=== PATIENT | male | born 1960 | race African-American/Black ===

== ENCOUNTER 2017-12-27 12:19 | Emergency (ER) | payer OTHER ==
[~2017-12-27] VITALS: Ht 188 cm; Wt 99.8 kg
[2017-12-27 12:39] VITALS: Ht 188 cm; Wt 99.8 kg
[2017-12-27 13:20] LABS: BASOPHIL % 0.2 % (0-2); PLATELET COUNT 183 x10^3mcL (130-400); RED CELL DISTRIBUTION WIDTH 13.1 % (11.5-14.5)
[2017-12-27 13:22] LABS: CALCIUM 8.2 mg/dL (8.5-10.1); CARBON DIOXIDE 25.5 mmol/L (21-32); CHLORIDE SERUM 105 mmol/L (98-107); CREATININE SERUM 1.2 mg/dL (0.7-1.3); GFR1 > 60 mL/min; GLUCOSE SERUM 112 mg/dL (74-106); POTASSIUM SERUM 3.7 mmol/L (3.5-5.1); SODIUM SERUM 139 mmol/L (136-145)
[2017-12-27 13:27] LABS: ALKALINE PHOSPHATASE 70 U/L (46-116); ALT/SGPT 101 U/L (16-63); AST/SGOT 64 U/L (15-37); BILIRUBIN TOTAL 0.99 mg/dL (0.20-1.00); TOTAL PROTEIN, SERUM 6.7 g/dL (6.4-8.2)
[2017-12-27 13:29] LABS: ALBUMIN 3.3 g/dL (3.4-5.0)
[2017-12-27 14:25] VITALS: BP 129/82
== END 2017-12-27 14:25 | disposition home or self-care (01) ==
LOC: ED 12:19
PROVIDERS: Emergency Medicine
DX: S96.912A Strain of unspecified muscle and tendon at ankle and foot level, left foot, initial encounter (principal); S60.512A Abrasion of left hand, initial encounter; G62.9 Polyneuropathy, unspecified; K21.9 Gastro-esophageal reflux disease without esophagitis; X58.XXXA Exposure to other specified factors, initial encounter; Y93.89 Activity, other specified; Y92.89 Other specified places as the place of occurrence of the external cause; Y99.8 Other external cause status
CPT/HCPCS: 36415; 83880; 90715

== ENCOUNTER 2018-03-06 21:22 | Emergency (ER) | payer OTHER ==
[~2018-03-06] VITALS: Ht 188 cm; Wt 103.0 kg
[2018-03-06 21:30] VITALS: Ht 188 cm; Wt 103.0 kg
[2018-03-06 22:20] LABS: BASOPHIL % 0.2 % (0-2); PLATELET COUNT 177 x10^3mcL (130-400); RED CELL DISTRIBUTION WIDTH 13.4 % (11.5-14.5)
[2018-03-06 22:24] LABS: CALCIUM 8.8 mg/dL (8.5-10.1); CARBON DIOXIDE 27.1 mmol/L (21-32); CHLORIDE SERUM 105 mmol/L (98-107); CREATININE SERUM 1.2 mg/dL (0.7-1.3); GFR1 > 60 mL/min; GLUCOSE SERUM 108 mg/dL (74-106); POTASSIUM SERUM 3.6 mmol/L (3.5-5.1); SODIUM SERUM 139 mmol/L (136-145)
[2018-03-07 01:03] VITALS: BP 165/70
== END 2018-03-07 01:03 | disposition home or self-care (01) ==
LOC: ED 21:22
PROVIDERS: Emergency Medicine
DX: R20.2 Paresthesia of skin (principal); G62.9 Polyneuropathy, unspecified; R07.89 Other chest pain; M79.672 Pain in left foot; M79.671 Pain in right foot
CPT/HCPCS: 36415; Q0092

== ENCOUNTER 2018-07-25 23:48 | Emergency (ER) | payer OTHER ==
[~2018-07-25] VITALS: Ht 188 cm; Wt 99.8 kg
[2018-07-25 23:54] VITALS: BP 132/83; Ht 188 cm; Wt 99.8 kg
== END 2018-07-26 00:41 | disposition home or self-care (01) ==
LOC: ED 23:48
DX: S01.111A Laceration without foreign body of right eyelid and periocular area, initial encounter (principal); K21.9 Gastro-esophageal reflux disease without esophagitis; F31.9 Bipolar disorder, unspecified; F42.9 Obsessive-compulsive disorder, unspecified; N02.8 Recurrent and persistent hematuria with other morphologic changes; W01.198A Fall on same level from slipping, tripping and stumbling with subsequent striking against other object, initial encounter; Y93.89 Activity, other specified; Y92.89 Other specified places as the place of occurrence of the external cause; Y99.8 Other external cause status; I10 Essential (primary) hypertension
CPT/HCPCS: J2001

== ENCOUNTER 2019-01-30 08:21 | Emergency (ER) | payer OTHER ==
[~2019-01-30] VITALS: Ht 188 cm; Wt 88.9 kg
[2019-01-30 08:32] VITALS: Ht 188 cm; Wt 88.9 kg
[2019-01-30 09:37] LABS: CALCIUM 8.8 mg/dL (8.5-10.1); CARBON DIOXIDE 29.5 mmol/L (21-32); CHLORIDE SERUM 102 mmol/L (98-107); GFR1 > 60 mL/min; GLUCOSE SERUM 81 mg/dL (74-106); POTASSIUM SERUM 3.3 mmol/L (3.5-5.1); SODIUM SERUM 142 mmol/L (136-145)
[2019-01-30 09:41] LABS: ALBUMIN 3.9 g/dL (3.4-5.0); ALKALINE PHOSPHATASE 96 U/L (46-116); ALT/SGPT 64 U/L (16-63); AST/SGOT 70 U/L (15-37); BILIRUBIN TOTAL 0.7 mg/dL (0.20-1.00); TOTAL PROTEIN, SERUM 7.5 g/dL (6.4-8.2)
[2019-01-30 09:50] LABS: BASOPHIL % 0.4 % (0-2); PLATELET COUNT 161 x10^3mcL (130-400); RED CELL DISTRIBUTION WIDTH 12.8 % (11.5-14.5)
[2019-01-30 10:48] VITALS: BP 132/69
== END 2019-01-30 10:48 | disposition home or self-care (01) ==
LOC: ED 08:21
PROVIDERS: Emergency Medicine
DX: R11.2 Nausea with vomiting, unspecified (principal); R09.81 Nasal congestion; R53.1 Weakness; F17.210 Nicotine dependence, cigarettes, uncomplicated; K21.9 Gastro-esophageal reflux disease without esophagitis; F32.9 Major depressive disorder, single episode, unspecified; F42.9 Obsessive-compulsive disorder, unspecified; R05 Cough
CPT/HCPCS: 99406; J7030; Q0092

== ENCOUNTER 2019-03-22 12:24 | Emergency (ER) | payer OTHER ==
[~2019-03-22] VITALS: Ht 188 cm; Wt 83.9 kg
[2019-03-22 12:30] VITALS: Ht 188 cm; Wt 83.9 kg
[2019-03-22 13:27] LABS: CARBON DIOXIDE 29.2 mmol/L (21-32); CHLORIDE SERUM 104 mmol/L (98-107); CREATININE SERUM 1.1 mg/dL (0.7-1.3); GFR1 > 60 mL/min; GLUCOSE SERUM 101 mg/dL (74-106); POTASSIUM SERUM 3.4 mmol/L (3.5-5.1); SODIUM SERUM 141 mmol/L (136-145)
[2019-03-22 13:38] LABS: ALBUMIN 3.6 g/dL (3.4-5.0); ALKALINE PHOSPHATASE 59 U/L (46-116); ALT/SGPT 99 U/L (16-63); AST/SGOT 143 U/L (15-37); BILIRUBIN TOTAL 0.7 mg/dL (0.20-1.00); CHOLESTEROL 190 mg/dL (<200); TOTAL PROTEIN, SERUM 6.6 g/dL (6.4-8.2)
[2019-03-22 14:11] LABS: BASOPHIL % 0.5 % (0-2); PLATELET COUNT 156 x10^3mcL (130-400); RED CELL DISTRIBUTION WIDTH 13.2 % (11.5-14.5)
[2019-03-22 16:14] VITALS: BP 143/86
== END 2019-03-22 16:14 | disposition home or self-care (01) ==
LOC: ED 12:24
PROVIDERS: Specialist
DX: R55 Syncope and collapse (principal); S09.8XXA Other specified injuries of head, initial encounter; F10.239 Alcohol dependence with withdrawal, unspecified; R19.7 Diarrhea, unspecified; I10 Essential (primary) hypertension; S29.012A Strain of muscle and tendon of back wall of thorax, initial encounter; K21.9 Gastro-esophageal reflux disease without esophagitis; F42.9 Obsessive-compulsive disorder, unspecified; X58.XXXA Exposure to other specified factors, initial encounter; Y93.89 Activity, other specified; Y92.89 Other specified places as the place of occurrence of the external cause; Y99.8 Other external cause status; Y90.0 Blood alcohol level of less than 20 mg/100 ml
CPT/HCPCS: 72072; 99406; G0480; J7030; Q0092

== ENCOUNTER 2019-04-10 22:17 | Inpatient (IN) | payer OTHER ==
[~2019-04-10] VITALS: Ht 188 cm; Wt 78.9 kg
[2019-04-10 22:30] VITALS: Ht 188 cm; Wt 78.9 kg
--- NOTE | 2019-04-10 22:49 | NUR ---
PT SITTING UP IN BED, AAOX4 WITH C/O 9/10 PAIN TO BACK OF HEAD S/P SYNCOPAL EPISODE 2 HOURS AGO. PT STATES HE HIT HIS HEAD ON A POLE WHILE AT THIS STORE AFTER HAVING A DIZZY SPELL. +LOC. OPEN LAC TO BACK OF HEAD WITH NO ACTIVE BLEEDING AT THIS TIME. PT STATES MULTIPLE EPISODES OF SYNCOPY FOR THE LAST 6 WEEKS AND WAS HERE 2 WEEKS AGO FOR SAME COMPLAINT. AT BEDSIDE. PT ON MONITOR.
--- NOTE | 2019-04-10 23:04 | NUR ---
PT OFF OF UNIT TO RADIOLOGY VIA [facility].
--- NOTE | 2019-04-10 23:30 | NUR ---
PT ASSISTED TO RESTROOM VIA WHEELCHAIR WITH AND EMT
[2019-04-10 23:32] LABS: BASOPHIL % 0.4 % (0-2); PLATELET COUNT 173 x10^3mcL (130-400); RED CELL DISTRIBUTION WIDTH 13.6 % (11.5-14.5)
[2019-04-10 23:56] LABS: ALBUMIN 3.4 g/dL (3.4-5.0); ALKALINE PHOSPHATASE 60 U/L (46-116); ALT/SGPT 55 U/L (16-63); AST/SGOT 41 U/L (15-37); CALCIUM 9.2 mg/dL (8.5-10.1); CARBON DIOXIDE 26.5 mmol/L (21-32); CHLORIDE SERUM 103 mmol/L (98-107); FREE T4 1.05 ng/dL (0.76-1.46); GFR1 > 60 mL/min; GLUCOSE SERUM 98 mg/dL (74-106); SODIUM SERUM 143 mmol/L (136-145); TOTAL PROTEIN, SERUM 6.4 g/dL (6.4-8.2)
[2019-04-11] VITALS (7 sets, daily range): BP systolic 134–150; BP diastolic 81–95
--- NOTE | 2019-04-11 00:15 | NUR ---
PT RESTING IN BED WITH AT BEDSIDE. NO SIGNS OF DISTRESS AT THIS TIME.
[2019-04-11] MEDS ORDERED: GOOD SENSE OMEP20 MG PO (00:34)
[2019-04-11] MEDS ORDERED: PAROXETINE HCL40 M1 PO (00:34)
[2019-04-11] MEDS ORDERED: TRAZODONE HCL300 MG PO (00:35)
[2019-04-11] MEDS ORDERED: PENTOXIFYL XR400 M1 PO (00:35)
[2019-04-11] MEDS ORDERED: DEPAKOTE ER250 M1 PO (00:36)
[2019-04-11] MEDS ORDERED: GOOD SENSE ASP325 MG PO (00:36)
[2019-04-11] MEDS ORDERED: LATUDA40 M1 PO (00:36)
[2019-04-11 00:37] LABS: PHOSPHOROUS 2.4 mg/dL (2.5-4.9)
[2019-04-11 00:42] LABS: CHOLESTEROL/HDL RATIO 1.6
--- NOTE | 2019-04-11 00:48 | NUR ---
REPORT GIVEN TO ARACELI HERNANDEZ.
[2019-04-11 01:07] LABS: AMPHETAMINE QUAL UR NONE DETECTED (See below)
--- NOTE | 2019-04-11 01:14 | NUR ---
EMT AT BEDSIDE FOR WOUND CARE.
[2019-04-11 01:21] LABS: UA SPECIFIC GRAVITY 1.025 (1.005-1.035); microscopic required? YES; urine erythrocyte NEGATIVE (NEGATIVE)
--- NOTE | 2019-04-11 02:10 | NUR ---
REC'D PT FROM ED VIA [facility] ACCOMPANIED BY NURSE, EMT, AND PT'S . PT AMBULATED FROM [facility] TO BED BY SELF. ADM FOR SYNCOPAL EPISODE. REPORTS THIS IS THE 6TH TIME THIS MONTH. STATES HE WAS ABOUT TO GO TO THE [facility]ORE, FAINTED, AND HIT THE BACK OF HIS HEAD ON A POLE. LACERATION TO BACK OF THE HEAD WITH X4 CHAGO. SMALL AMT OF SANGUINEOUS DRAINAGE NOTED. PICTURE OBTAINED. REPORTS MILD DIZZINESS WITH AMBULATION BUT DENIES AT REST. AAOX4, SPEECH CLEAR, FOLLOWS COMMANDS. DENIES RESP DISTRESS OR SOB. BREATHING EVEN/UNLABORED ON RA. TELE 10, NSR. DENIES CP OR PALPITATIONS. NO EDEMA NOTED. C/O NUMBING TO TOES AND FLORES SHOULDERS. AMBULATES BY SELF. ABD SOFT/ROUND. C/O TENDERNESS WITH PALPATION. REPORTS POOR APPETITE AND VOMITING ALMOST EVERY DAY. STATES HE HAS "MUCUS IN HIS STOMACH" AND HAS LOST 50 LBS IN THE PAST 4 MONTHS. LAST BM YESTERDAY WATERY/BROWN. C/O THROBBING NECK PAIN /10 AND SOME PAIN TO THE CHAGO ON THE BACK OF HIS HEAD BUT "SORT OF NUMB" D/T LIDOCAINE GIVEN IN ED. WILL MEDICATE WITH TYLENOL PER ORDER. IV TO LAC FLUSHED AND PATENT, SITE WNL. ORIENTED TO DEVICES AND SURROUNDINGS. CALL LIGHT WITHIN REACH, BED AT LOWEST POSITION. WILL CONTINUE TO MONTIOR.
--- NOTE | 2019-04-11 02:16 | NUR ---
PT TRANSFERRED TO TELE FLOOR ACCOMPANIED BY NURSE AND EMT. NO S/S OF DISTRESS. RESP E/U. PT CONNECTED TO MONITOR DURING TRANSFER. NURSE AT BEDSIDE TO ASSUME CARE. IV SITE PATENT NO S/S OF INFILTRATION.
--- NOTE | 2019-04-11 02:26 | NUR ---
DR. AVINA AT BEDSIDE. MADE AWARE OF K 3.O.
--- NOTE | 2019-04-11 03:54 | NUR ---
PT RESTING IN BED WITH EYES CLOSED. NO SIGNS OF DISTRESS NOTED. BREATHING EVEN/UNLABORED ON RA. AWAKENS WITH VERBAL STIMULI. DUE MEDS GIVEN. SWALLOWED KLOR CON WITHOUT DIFFICULTY. INFORMED PT HOME MED LATUDA REQUIRED SINCE WE DO NOT CARRY IT IN HOUSE. PT VERBALIZED UNDERSTANDING. CALL LIGHT WITHIN REACH, BED AT LOWEST POSITION. WILL CONTINUE TO MONITOR.
--- NOTE | 2019-04-11 05:35 | NUR ---
PT RESTING IN BED WITH EYES CLOSED. DUE MEDS GIVEN. DENIES DIZZINESS AT THIS TIME. CHAGO TO BACK OF THE HEAD INTACT. CALL LIGHT WITHIN REACH, BED AT LOWEST POSITION. WILL ENDORSE TO DAY NURSE.
[2019-04-11 06:21] LABS: CALCIUM 8.5 mg/dL (8.5-10.1); CARBON DIOXIDE 28.2 mmol/L (21-32); CHLORIDE SERUM 107 mmol/L (98-107); CREATININE SERUM 1.1 mg/dL (0.7-1.3); GFR1 > 60 mL/min; GLUCOSE SERUM 81 mg/dL (74-106); PHOSPHOROUS 3.7 mg/dL (2.5-4.9); POTASSIUM SERUM 3.4 mmol/L (3.5-5.1); SODIUM SERUM 144 mmol/L (136-145)
[2019-04-11 06:25] LABS: BASOPHIL % 0.3 % (0-2); PLATELET COUNT 143 x10^3mcL (130-400); RED CELL DISTRIBUTION WIDTH 14.1 % (11.5-14.5)
--- NOTE | 2019-04-11 07:10 | NUR ---
RECEIVED BEDSIDE REPORT FROM RIVET DRIVER NURSE AT THIS TIME. PATIENT RESTING COMFORTABLY IN BED. NO APPARENT DISTRESS OR DISCOMFORT NOTED. BREATHING EVEN AND UNLABORED. NO RESPIRATORY DISTRESS OR DISCOMFORT. PATIENT DENIES CHEST PAIN/PRESSURE AT THIS TIME. IV PATENT AND INTACT. CHAGO TO BACK OF HEAD INTACT. NO REDNESS NOTED. ALL QUESTIONS AND CONCERNS ADDRESSED. ALL NEEDS ATTENDED TO. WILL CONTINUE TO MONITOR
--- NOTE | 2019-04-11 10:59 | NUR ---
ALL MORNING MEDICATIONS ADMINISTERED. PATIENT TOLERATED WELL. NO APPARENT DISTRESS OR DISCOMFORT NOTED. NO ADVERSE EFFECTS NOTED. ALL NEEDS ATTENDED TO. WILL CONTINUE TO MONITOR
--- NOTE | 2019-04-11 12:48 | NUR ---
PAGED DR DIMAS AT THIS TIME REGARDING PATIENT POTASSIUM OF 3.4. AWAITING CALL BACK. WILL CONTINUE TO MONITOR
--- NOTE | 2019-04-11 13:24 | NUR ---
PATIENT SITTING ON SIDE OF BED EATING LUNCH AT THIS TIME. TOLERATING DIET FAIRLY. C/O POOR APPETITE. ALL NEEDS ATTENDED TO. WILL CONTINUE TO MONITOR
--- NOTE | 2019-04-11 16:02 | NUR ---
PATIENT C/O HEADACHE AT THIS TIME. PATIENT MEDICATED WITH TYLENOL PRN. PATIENT TOLERATED WELL. NO ADVERSE EFFECT NOTED. ALL NEEDS ATTENDED TO. WILL CONTINUE TO MONITOR
--- NOTE | 2019-04-11 17:59 | NUR ---
PATIENT SITTING UP ON SIDE OF BED EATING DINNER AT THIS TIME. PATIENT TOLERATING DIET WELL. NO APPARENT DISTRESS OR DISCOMFORT NOTED. ALL NEEDS ATTENDED TO. WILL CONTINUE TO MONITOR
--- NOTE | 2019-04-11 18:40 | NUR ---
PATIENT RESTING COMFORTABLY IN BED AT THIS TIME. NO APPARENT DISTRESS OR DISCOMFORT NOTED. IV PATENT AND INTACT. ALL QUESTIONS AND CONCERNS ADDRESSED. ALL NEEDS ATTENDED TO. SAFETY PRECAUTIONS MAINTAINED. WILL ENDORSE ALL CARE TO SYSTEMS QA ANALYST NURSE
--- NOTE | 2019-04-11 19:35 | NUR ---
RECIEVED PT RESTING IN BED COMFORTABLY WITH FAMILY MEMBER AT BEDSIDE, NO ACUTE DISTRESS NOTED, ASSESSMENT PERFORMED AT THIS TIME, PT A/O X4 NO COMPLAINTS OF DIZZINESS AT THIS TIME, PT REPORTS MILD HUDDLESTON, PT STATES HUDDLESTON IS WITHIN PAIN TOLERANCE AND WELL CONTROLED, TELE MONITOR 10, NSR, SAFETY PRECAUTIONS IN PLACE, WILL CONTINUE TO MONITOR
--- NOTE | 2019-04-11 21:37 | NUR ---
PT COMNPLAINING OF HUDDLESTON 01/24 REQUESTING TYLENOL. ADMINISTERED PER ORDER WILL CONTINUE TO MONITOR
--- NOTE | 2019-04-11 23:20 | NUR ---
PT SLEEPING IN BED WITH NO ACUTE DISTRESS AT THIS TIME, RESPIRATIONS EVEN AND UNLABORED, SAFETY PRECAUTIONS IN PLACE, WILL CONTINUE TO MONITOR
--- NOTE | 2019-04-12 01:24 | NUR ---
PT SLEEPING IN BED WITH NO ACUTE DISTRESS AT THIS TIME, RESPIRATIONS EVEN AND UNLABORED, SAFETY PRECAUTIONS IN PLACE, WILL CONTINUE TO MONITOR
--- NOTE | 2019-04-12 03:36 | NUR ---
PT SLEEPING IN BED WITH NO ACUTE DISTRESS NOTED AT THIS TIME, RESPIRATIONS EVEN AND UN LABORED, SIEZURE PRECAUTIONS IN PLACE, SAFETY PRECAUTIONS IN PLACE, WILL CONTINUE TO MONITOR
--- NOTE | 2019-04-12 05:17 | NUR ---
PT SLEPT THROUGH OUT THE NIGHT AND HAD ONLY ONE EPISODE OF PAIN WHICH WAS A HUDDLESTON AND WAS RESOLVED WITH PRN ADMINISTRATION OF TYLENOL, SIEJULIANRE PRECAUTIONS WERE MAINTAINED THROUGH SHIFT, SAFETY PRECAUTIONS MAINTAINED THROUGH SHIFT, WILL CONTINUE TO MONITOR AND ENDORSE CARE TO ONCOMING RN
[2019-04-12 05:19] VITALS: BP 142/87
[2019-04-12 06:09] LABS: BASOPHIL % 0.3 % (0-2); PLATELET COUNT 140 x10^3mcL (130-400); RED CELL DISTRIBUTION WIDTH 13.9 % (11.5-14.5)
[2019-04-12 06:23] LABS: CALCIUM 8.2 mg/dL (8.5-10.1); CARBON DIOXIDE 26.7 mmol/L (21-32); CHLORIDE SERUM 109 mmol/L (98-107); CREATININE SERUM 0.9 mg/dL (0.7-1.3); GFR1 > 60 mL/min; GLUCOSE SERUM 94 mg/dL (74-106); MAGNESIUM 2.1 mg/dL (1.8-2.4); PHOSPHOROUS 2.2 mg/dL (2.5-4.9); POTASSIUM SERUM 3.5 mmol/L (3.5-5.1); SODIUM SERUM 145 mmol/L (136-145)
--- NOTE | 2019-04-12 07:30 | NUR ---
PATIENT SLEEPING BED, AROUSABLE. PATEINT DENIES PAIN. PATIENT C/O HEADACHE. SEIZURE PRECAUTION IN PLACE. LACERATION TO SCALP CDI, NO DRAINAGE NOTED. TELE MONITOR IN PLACE, DENIES CHEST PAIN. NUMBNESS TO TOES NOTED, HX OF BUERGERS DISEASE. DENIES SOB. INCREASE APPETITE NOTED. PATIENT C/O FREQUENT URINATION. MILD GENERALIZED WEAKNESS NOTED. NS IV INFUSING TO LAC AT 50ML/HR, IV SITE CDI & PATENT, NO S/S OF INFILTRATION. CALL LIGHT WITHIN REACH, BED IN LOW POSITION FOR SAFETY PRECAUTION. WILL CONTINUE TO MONITOR FOR CHANGES.
--- NOTE | 2019-04-12 08:58 | NUR ---
WOUND CARE EVALUATION NOTES: REASON FOR EVALUATION: OCCIPITAL SCALP LACERATION SKIN ASSESSMENT DONE ON THIS 59 Y/O MALE PATIENT FROM HOME TO [facility], WITH INITIAL DIAGNOSIS OF SYNCOPY. PAST MEDICAL HISTORY INCLUDE BUERGER'S DISEASE, DEPRESSION,BIPOLAR AND SCHIZOPHRENIA. ALL ABOVE INFORMATION WAS OBTAINED FROM THE ADMISSION H&P. PT SKIN IS WARM AND DRY, MULTIPLE TATTOO TO UPPER BODY, OCCIPITAL SCALP LACERATION WITH [address] DRY AND CLEAN ,ROBERT-WOUND SKIN CLEAN AND SWELLING, SKIN INTACT. RECOMMENDATIONS: KEEP AREA, DRY AND CLEAN, FOLLPW UP WITH PRIMARY /OUT PATIENT 7-10 DAYS AFTER DISCHARGE FOR STAPLE REMOVAL.PT. VERVALIZING UNDERSYANDING. PLAN OF CARE EXPLAIN AND ALL QUESTIONS ANSWERED. POC DISCUSSED WITH PRIMARY RN.
--- NOTE | 2019-04-12 09:25 | NUR ---
PATIENT C/O HEADACHE 05/26, MEDICATED PATIENT WITH TYLENOL PER PROTOCOL. TURNED OFF PATIENT LIGHTS TO REDUCE STIMULI. CALL LIGHT WITHIN REACH, BED IN LOW POSITION FOR SAFETY PRECAUTION. WILL CONTINUE TO MONITOR FOR CHANGES.
[2019-04-12 09:36] VITALS: BP 125/81
--- NOTE | 2019-04-12 13:00 | NUR ---
PATIENT IS SITTING UP IN BED, NO ACUTE DISTRESS NOTED. PATIENT DENIES PAIN. PATIENT IS EATING WELL, AND STATES HE HAS A BETTER APPETITE TODAY. CALL LIGHT WITHIN REACH, BED IN LOW POSITION FOR SAFETY PRECAUTION. WILL CONTINUE TO MONITOR FOR CHANGES.
[2019-04-12 13:26] VITALS: BP 141/89
[2019-04-12 16:01] VITALS: BP 141/89
[2019-04-12 16:59] VITALS: BP 136/92
--- NOTE | 2019-04-12 17:45 | NUR ---
PATIENT WAS DISCHARGE HOME, FAMILY AT BEDSIDE. PATIENT RECEIVED COPY OF DISCHARGE INSTRUCTIONS, PATIENT UNDERSTANDS AND AGREES WITH PLAN OF CARE AND D/C INSTRUCTIONS, INCLUDING MEDICATIONS & FOLLOW UP WITH PCP. ALL QUESTIONS AND CONCERNS ADDRESSED. PATIENT TOOK HOME ALL PERSONAL BELONGSING. TELE MONITOR & ARMBAND REMOVED. IV TO LAC REMOVED BY RN STUDENT. PATIENT TAKEN DOWN VIA WHEELCHAIR BY SHELLFISH SHUCKER.
== END 2019-04-12 17:44 | disposition home or self-care (01) | DRG 48 ==
LOC: ED 22:17 → DU 04-11 00:13
PROVIDERS: Emergency Medicine; ADMIT Internal Medicine
DX: G90.8 Other disorders of autonomic nervous system (principal); N17.0 Acute kidney failure with tubular necrosis; E44.1 Mild protein-calorie malnutrition; E83.39 Other disorders of phosphorus metabolism; S01.01XA Laceration without foreign body of scalp, initial encounter; F10.10 Alcohol abuse, uncomplicated; F25.0 Schizoaffective disorder, bipolar type; F17.210 Nicotine dependence, cigarettes, uncomplicated; F12.10 Cannabis abuse, uncomplicated; E87.6 Hypokalemia; E87.2 Acidosis; E83.51 Hypocalcemia; Y90.0 Blood alcohol level of less than 20 mg/100 ml; F31.9 Bipolar disorder, unspecified; W18.39XA Other fall on same level, initial encounter; Z79.82 Long term (current) use of aspirin; Z68.22 Body mass index [BMI] 22.0-22.9, adult; Z91.81 History of falling; Y93.89 Activity, other specified; Y92.512 Supermarket, store or market as the place of occurrence of the external cause; Y99.8 Other external cause status
CPT/HCPCS: 83880; 84439; 90715; G0378; G0480; J1885; J2001; J3411; J3475; J7030; Q0092

== ENCOUNTER 2020-08-06 01:07 | Observation (INO) | payer OTHER ==
[~2020-08-06] VITALS: Ht 188 cm; Wt 95.3 kg
[~2020-08-06 01:07] MED LIST: GOOD SENSE ASP325 MG PO; GOOD SENSE OMEP20 MG PO; PAROXETINE HCL40 M1 PO; TRAZODONE HCL300 MG PO
[2020-08-06 01:08] VITALS: Ht 188 cm; Wt 95.3 kg
[2020-08-06 02:59] LABS: CALCIUM 8.6 mg/dL (8.5-10.1); CARBON DIOXIDE 27.3 mmol/L (21-32); CHLORIDE SERUM 104 mmol/L (98-107); GFR1 > 60 mL/min; GLUCOSE SERUM 103 mg/dL (74-106); POTASSIUM SERUM 3.4 mmol/L (3.5-5.1); SODIUM SERUM 141 mmol/L (136-145)
[2020-08-06 03:00] LABS: BASOPHIL % 0.8 % (0-2); PLATELET COUNT 142 x10^3mcL (130-400); RED CELL DISTRIBUTION WIDTH 12.9 % (11.5-14.5)
[2020-08-06 03:03] LABS: ALBUMIN 3.7 g/dL (3.4-5.0); ALKALINE PHOSPHATASE 107 U/L (46-116); ALT/SGPT 40 U/L (16-63); AST/SGOT 26 U/L (15-37); TOTAL PROTEIN, SERUM 6.8 g/dL (6.4-8.2)
[2020-08-06 04:28] LABS: AMPHETAMINE QUAL UR NONE DETECTED (See below)
[2020-08-06 07:39] LABS: CHOLESTEROL/HDL RATIO 2.1
[2020-08-06 10:36] VITALS: BP 153/79
[2020-08-06 11:47] VITALS: BP 140/83
[2020-08-06 16:08] VITALS: BP 144/97
[2020-08-06 19:30] VITALS: BP 149/78
[2020-08-07 05:46] VITALS: BP 150/95
[2020-08-07 07:17] LABS: BASOPHIL % 0.5 % (0-2); PLATELET COUNT 137 x10^3mcL (130-400); RED CELL DISTRIBUTION WIDTH 12.4 % (11.5-14.5)
[2020-08-07 07:38] LABS: CALCIUM 8.5 mg/dL (8.5-10.1); CARBON DIOXIDE 26.4 mmol/L (21-32); CHLORIDE SERUM 105 mmol/L (98-107); CREATININE SERUM 1.1 mg/dL (0.7-1.3); GFR1 > 60 mL/min; GLUCOSE SERUM 95 mg/dL (74-106); POTASSIUM SERUM 3.8 mmol/L (3.5-5.1); SODIUM SERUM 140 mmol/L (136-145)
[2020-08-07 07:43] VITALS: BP 146/84
[2020-08-07 11:35] VITALS: BP 133/79
[2020-08-07 13:26] VITALS: BP 129/77
[2020-08-07] MEDS ORDERED: ZES10 PO (16:11)
[2020-08-07 16:25] VITALS: BP 141/75
[2020-08-07] MEDS ORDERED: LATUDA40 M1 PO (16:25)
[2020-08-07] MEDS ORDERED: DEPAKOTE ER250 M1 PO (16:25)
[2020-08-07] MEDS ORDERED: PENTOXIFYL XR400 M1 PO (16:25)
[2020-08-07 16:26] VITALS: BP 141/45
== END 2020-08-07 17:35 | disposition home or self-care (01) ==
LOC: ED 01:07 → DU 05:05
PROVIDERS: Emergency Medicine; ADMIT Hospitalist; ATTEND Hospitalist
DX: I10 Essential (primary) hypertension (principal); N02.8 Recurrent and persistent hematuria with other morphologic changes; F31.9 Bipolar disorder, unspecified; Z20.828 Contact with and (suspected) exposure to other viral communicable diseases
CPT/HCPCS: 83880; 99406; A9500; G0378; J1885; J2405; J2785; J7030; J7070; Q0092